=== PATIENT | female | born 1975 | race Caucasian/White ===

== ENCOUNTER 2018-10-11 10:44 | Emergency (ER) | payer OTHER | END 2018-10-11 12:24 | disposition home or self-care (01) | LOC: FTE 10:44 | DX: S99.911A Unspecified injury of right ankle, initial encounter (principal); X50.1XXA Overexertion from prolonged static or awkward postures, initial encounter; Y92.9 Unspecified place or not applicable | CPT/HCPCS: 73630; 99283-25 ==